=== PATIENT | male | born 1975 | race Caucasian/White ===

== ENCOUNTER 2020-03-16 07:10 | Outpatient (REF) | payer BC, SELFPAY | END 2020-03-16 07:11 | disposition home or self-care (01) | LOC: HO.LAB 07:10 | PROVIDERS: PCP Nurse Practitioner Family; Visit Provider Internal Medicine | DX: Z20.828 Contact with and (suspected) exposure to other viral communicable diseases (principal) | CPT/HCPCS: C9803; U0003 ==

== ENCOUNTER 2020-04-03 07:37 | Outpatient (REF) | payer BC, SELFPAY ==
[2020-04-03 07:51] LABS: COVID-19 Test Positive (Negative)
== END 2020-04-03 07:38 | disposition home or self-care (01) ==
LOC: HO.LAB 07:37
PROVIDERS: Visit Provider Internal Medicine
DX: Z20.828 Contact with and (suspected) exposure to other viral communicable diseases (principal)
CPT/HCPCS: 87635; C9803

== ENCOUNTER 2022-10-18 20:21 | Emergency (ER) | payer BC, SELFPAY ==
--- NOTE | ~2022-10-18 | CT_ITS ---
EXAMINATION: CT HEAD WITHOUT CONTRAST CLINICAL INFORMATION: Headache, head strike, loss of consciousness. COMPARISON: None TECHNIQUE: Contiguous axial imaging was performed from the skull base to vertex without intravenous administration of contrast. This CT examination was performed using dose optimization techniques as appropriate, variously including the following: *Automated exposure control *Adjustment of mA and/or kV according to patient size (this includes techniques or standardized protocols for targeted exams where dose is matched to indication/reason for exam; i.e. extremities or head) *Use of iterative reconstruction technique DLP: 660 mGy-cm FINDINGS: There is no evidence of acute intracranial hemorrhage or edematous territorial infarction. There is no abnormal attenuation within the brain parenchyma. Coffey-white matter differentiation is preserved. The ventricles are normal in size and configuration. No evidence for obstructive hydrocephalus. No abnormal mass effect or midline shift. No extra-axial fluid collections. No acute soft tissue or osseous abnormalities. The mastoid air cells and paranasal sinuses are clear. CT/CT head/brain wo IV con IMPRESSION: No evidence of acute intracranial hemorrhage or edematous territorial infarction.
--- NOTE | 2022-10-18 20:42 | ED_ITS ---
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 Complaint: head injury Onset (ago): hour(s) Place: work and other (ice rink) Related Data Allergies Allergy/AdvReac Type Severity Reaction Status Date / Time No Known Allergies Allergy Verified 10/18/22 20:43 Review of Systems Review of Systems: Yes all other systems are reviewed and are negative Constitutional: Comments: confusion and LOC Neurologic: Denies Sensory deficit (Neuro) [facility] Social History Social History Advance Directives: No Advance Directives Information Provided: Yes Physical Exam Vital Signs: Vital Signs: Last Vital Signs Temp 97.9 F 10/18/22 20:43 Pulse 79 10/18/22 20:43 Resp 17 10/18/22 20:43 BP 142/87 H 10/18/22 20:43 Pulse Ox 98 10/18/22 20:43 O2 Del Method Room Air 10/18/22 20:43 BMI result Body Mass Index 32.7 Const: General: healthy appearing Nutritional Appearance: average body habitus Orientation/consciousness: oriented to person and patient oriented x3 Limitations: no limitations HEENT: Head: Yes normal to inspection Ears: external ears normal General nose exam: Normal external nose present Mouth: Normal oral and palatal mucosa present and oropharynx normal Throat: Yes posterior oropharynx normal Eyes: General: appearance normal, both eyes and all related structures Neck: Other: supple Neck: Yes normal visual inspection Chest: Chest palpation & inspection: normal inspection of the chest Resp: Auscultation: clear to auscultation bilaterally Cardio: Jugular venous distension: no JVD Rate: regular rate Rhythm: regular rhythm Heart sounds: S1 normal heart sound present and S2 normal heart sound present GI: Inspection: Yes normal to inspection Palpation (GI): Soft to palpation, nontender and No hepatosplenomegaly present Auscultation: normal bowel sounds : General: Yes no CVA tenderness Back/Spine/Pelvis: Back: no CVA tenderness Skin: General skin exam: no rashes or lesions noted Neuro: General: oriented to person and patient oriented x3 Cranial nerves: Yes CN's II-XII intact bilaterally Motor exam (neuro): 5/5 motor strength present throughout Sensory Exam: No Sensory deficit (Neuro) Extrem: General: Yes normal to inspection Psych: Appearance: grossly normal Course Course Course Narrative: RME: 47 yo M w/no sig PMHx c/o ELL[place]OTT and +LOC s/p falling backwards w/+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 denies N/V or taking AC. +memory loss after incident Head CT orderd Full HPI, ROS and PE to be performed by primary ED provider. Reevaluation(s) Reevaluation #1: Patient neurologically intact but significant LOC after head trauma will dc with concussion Time: 01:42 Medical Decision Making Differential Diagnosis Differential Diagnoses: The differential diagnosis associated with the presentation includes (cerebral bleed, subdural, epidural, cerebral contusion, concussion) Admission/Observation Consideration of admission/observation: Escalation of care including admission/observation considered (upon arrival this patient with significant LOC after head trauma followed by confusion was considered for admission) Independent Interpretation I performed an independent interpretation of an: CT Scan (no blood, no subdural, no epidural) Radiology Impression Discussion of test interpretation with radiology: I have reviewed the radiologist's reading. (no acute findings, I agree) Tests considered The following testing was considered but not selected: cervical spine considered but full range of motion non tender Discharge Plan Discharge Clinical Impression: Closed head injury, Concussion with loss of consciousness Patient Disposition: Home, Self-Care Instructions: Concussion (ED) Referrals: Physician,Unknown J [Primary Care Provider] - 3 days (must have post concussion evaluation prior to returning to work) Stand Alone Forms: Work/School Release
[2022-10-18 20:43] VITALS: BP 142/87; PULSE 79; RESP 17; TEMP 36.6; O2SAT 98; BMI 32.7
== END 2022-10-19 01:55 | disposition home or self-care (01) ==
PROVIDERS: Emergency Provider Emergency Medicine
DX: S06.0XAA Concussion with loss of consciousness status unknown, initial encounter (principal); W00.0XXA Fall on same level due to ice and snow, initial encounter; R51.9 Headache, unspecified; Y93.22 Activity, ice hockey; Y92.330 Ice skating rink (indoor) (outdoor) as the place of occurrence of the external cause; Y99.0 Civilian activity done for income or pay
CPT/HCPCS: 70450; 99282; 99284